=== PATIENT | male | born 1965 | race Caucasian/White ===

== ENCOUNTER 2021-03-13 13:13 | Outpatient (REF) | payer MEDICARE, MEDICAID, SELFPAY ==
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
== END 2021-03-13 13:14 | disposition home or self-care (01) ==
LOC: HO.SH 13:13
PROVIDERS: Visit Provider Internal Medicine
DX: H90.6 Mixed conductive and sensorineural hearing loss, bilateral (principal)
CPT/HCPCS: 92557; 92567; 92587